=== PATIENT | female | born 1935 | race Caucasian/White ===

== ENCOUNTER → 2018-04-16 | Outpatient (CLI) | payer MEDICARE ==
--- NOTE | 2018-04-17 19:56 | Diagnostic Imaging Report ---
History: Right arm numbness Comparison studies: None Technique: Sagittal T1, T2 and IR, axial T2 and axial gradient echo Intravenous contrast: None Findings: Alignment: Normal lordosis. No scoliosis. Cervicomedullary junction: No abnormalities. Patent foramen magnum. Soft tissues: No T2 hyperintense inflammatory changes. Spinal cord: Focally increased in T2 signal dorsally from C3-C4 to inferior C4. Otherwise, normal in size and signal from the foramen magnum. Vertebrae: Normal in height and signal intensity. No fractures, infection or neoplasm. Degenerative changes: C2-C3: No abnormalities. C3-C4: Moderately degenerated disc. Severe spinal canal stenosis due to a disc osteophyte complex results in chronic T2 hyperintense gliotic/ischemic changes in the dorsal cord at midline that extend from C3-C4 to inferior C4 Moderate bilateral foraminal stenosis, left greater than right due to uncoarthrosis. Increased fluid is seen in the moderately degenerated left facet joint. No disc herniation. C4-C5: Moderately degenerated disc. Severe spinal canal stenosis is due to a disc osteophyte complex. Superimposed moderate bilateral foraminal stenosis due to uncoarthrosis. No disc herniation. C5-C6: Moderately degenerated disc. Moderate spinal canal stenosis due to a disc osteophyte complex. Moderate bilateral foraminal stenosis due to uncoarthrosis. No disc herniation. C6-C7: Moderately degenerated disc. Mild spinal canal stenosis due to a disc osteophyte complex. Foraminal stenosis, mild right, moderate left due to uncoarthrosis. No disc herniation. C7-T1: No abnormalities. Incidental 3 mm perineural cysts on the left. IMPRESSION: 1. Moderately degenerated discs from C3 to C7. 2. Severe degenerative spinal canal stenosis from C3 to C5 due to disc osteophyte complexes. T2 hyperintense aortic/chronic ischemic changes in the dorsal cord extend from C3-4 to inferior C4. 3. Superimposed degenerative foraminal stenosis is moderate from C3 to C7. 4. No disc herniations Signed by: Dr. Domingo Cavazos M.D. on 04/17/2018 7:53 PM
--- NOTE | 2018-04-18 08:26 | Diagnostic Imaging Report ---
History: R arm numbness . Comparison studies: None Technique: Sagittal and axial T2 , sagittal T1 and IR, axial spin density oblique. Intravenous contrast: None Findings: Alignment: Normal lordosis . Dextroscoliosis . Soft tissues: No T2 hyperintense inflammatory changes 1 cm cyst is seen at the right kidney upper pole. Paraspinal muscles: No signal abnormalities. Well-preserved. No atrophy . Lower thoracic cord: Normal in signal and morphology. The tip of the conus is at L1. Cauda equina: No masses. No arachnoiditis. Vertebrae: Normal in height and signal intensity. No compression fractures, infection or neoplasm. Degenerative changes: Disc degeneration with loss of T2 signal is partially visualized lower thoracic spine. L1-L2: Disc degeneration with loss T2 signal. Mild diffuse disc bulge and mild facet hypertrophy along with ligamentum flavum thickening results in mild canal stenosis and mild right foraminal narrowing. L2-L3: Disc degeneration with loss of T2 signal. Mild diffuse disc bulge, mild facet hypertrophy and ligamentum flavum thickening results in mild canal stenosis and mild bilateral foraminal narrowing. L3-L4: Disc degeneration with loss of T2 signal, decreased intervertebral space and L3 inferior endplates Schmorl node. Asymmetric left disc bulge, moderate facet hypertrophy and ligamentum flavum thickening results in moderate canal stenosis, obliteration of the left subarticular recesses and mild left foraminal narrowing. Trace of fluid is seen at the bilateral facet joints. L4-L5: Disc degeneration with loss of T2 signal, L4 inferior endplate Schmorl node and mild Modic type I changes towards the right. Asymmetric left disc bulge, moderate facet hypertrophy and ligamentum flavum thickening results in mild canal stenosis and no significant foraminal narrowing. Trace of fluid is seen at the right facet joint. L5-S1: Disc degeneration with loss of T2 signal mild diffuse disc bulge, moderate facet hypertrophy results in no significant canal stenosis or foraminal narrowing. Fluid is seen at the bilateral facet joints with inferiorly projecting 5 mm synovial cysts.. IMPRESSION: 1. Moderate canal stenosis and narrowing of the left subarticular recesses abutting the descending L4 nerve root at L3-L4. 2. Disc degeneration throughout the lumbar spine with mild Modic type I changes at L4-L5. 3. Moderate facet hypertrophy at the lower lumbar spine with synovitis changes. Other mild degenerative changes as described above . Signed by: Bry DelgadoD. on 04/18/2018 8:22 AM
== END ==
LOC: MRI 08:48
PROVIDERS: ATTEND Neurological Surgery
DX: M50.120 Mid-cervical disc disorder, unspecified level (principal); M48.062 Spinal stenosis, lumbar region with neurogenic claudication
CPT/HCPCS: 72141; 72148

== ENCOUNTER → 2018-04-20 | Outpatient (CLI) | payer MEDICARE ==
[~2018-04-20] MED LIST: ASPIR 8181 MG PO; CALCIUM600 MG PO; GADOBENATE DIMEGLUMINE 1 ML IV ONE; IRON PO; LOSARTAN POTASS50 MG PO; MAGNESIUM500 MG PO; MULTIVITAMINS1 EAC7 PO; SPIRONOLACTONE25 MG PO; VITAMIN D1000 UNI1 PO
== END ==
LOC: MRI 07:53
PROVIDERS: ATTEND Neurological Surgery
DX: M47.12 Other spondylosis with myelopathy, cervical region (principal)
CPT/HCPCS: 72142

== ENCOUNTER → 2018-04-25 | Outpatient (CLI) | payer MEDICARE ==
--- NOTE | 2018-04-25 16:18 | Diagnostic Imaging Report ---
History: Right hand numbness Comparison studies: None Technique: Pre-contrast: Sagittal T2; axial T1-IR, SWI, DWI, T2 FLAIR Post-contrast: Axial, coronal and sagittal T1. Intravenous contrast: 15 cc of MultiHance Findings: Scalp: No abnormal signal. No masses. Bone marrow: Normal in signal intensity. Extra-axial: No masses, fluid collections or hemorrhage. Brain sulci: Appropriate for age. Ventricles: Normal in size . No hydrocephalus. Parenchyma: Scattered T2 FLAIR hyperintense foci in the supratentorial white matter and in the lexi are nonspecific small vessel ischemic changes. No masses, hemorrhage, acute or chronic vascular insults. No enhancing abnormalities. Suprasellar region: No abnormalities. Craniocervical junction: No abnormalities. Patent foramen magnum. No Chiari one malformation.. Vessels: Normal flow-voids in the arteries and sinuses. IMPRESSION: 1. Mild microvascular ischemic changes in the supratentorial white matter and in the lexi. 2. Otherwise, no abnormalities. Signed by: Dr. Domingo Cavazos M.D. on 04/25/2018 4:15 PM
== END | disposition home or self-care (01) ==
LOC: MRI 13:29
PROVIDERS: ATTEND Neurological Surgery
DX: G95.89 Other specified diseases of spinal cord (principal)
CPT/HCPCS: 70553

== ENCOUNTER → 2018-07-07 | Outpatient (CLI) | payer MEDICARE ==
[~2018-07-07] MED LIST changes: -GADOBENATE DIMEGLUMINE 1 ML IV ONE
[2018-07-07 13:49] LABS: INR 1.13; PROTHROMBIN TIME 13.6 seconds (11.9-14.5)
[2018-07-07 13:50] LABS: PARTIAL THROMBOPLASTIN TIME 25.3 seconds (23.8-35.5)
== END ==
LOC: DX 12:52
PROVIDERS: ATTEND Student in an Organized Health Care Education/Training Program
DX: R93.7 Abnormal findings on diagnostic imaging of other parts of musculoskeletal system (principal)
CPT/HCPCS: 36415; 85049; 85610; 85730

== ENCOUNTER → 2018-07-25 | Outpatient (CLI) | payer MEDICARE ==
[~2018-07-25] MED LIST changes: +LIDOCAINE HCL 1% LOCAL INJ 20 ML VIAL ONE
--- NOTE | 2018-07-25 14:03 | Diagnostic Imaging Report ---
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 Medications: 1% lidocaine and bicarbonate. Exposure/ DAP: Total exam dose length product: 803 mGy-cm Procedure: Informed consent was obtained from the patient following delineation of the risks, benefits, and alternatives to the procedure. Patient was then taken to the CT suite and placed prone on the table. Preliminary imaging of the lumbosacral spine was performed. The patient's back was marked, prepped and draped in the usual sterile fashion. After administration of local anesthesia, a 22-gauge x 3.5 inch spinal needle was advanced via a right of midline approach into the L4-L5 subarachnoid utilizing CT guidance. Given difficulty with patient mobility, she was not repositioned into the lateral decubitus position. The pressure measurement utilizing prone positioning was 15 mm Hg. Approximately 11 cc of clear, colorless cerebrospinal fluid was removed and sent for analysis. The needle was removed and sterile bandage was applied. The patient tolerated the procedure well. Impression: CT guided L4-L5 lumbar puncture with successful removal of cerebrospinal fluid as above. Pressure measurement of 15 mm Hg on prone positioning. Signed by: Dr. Piedad Paris MD on 07/25/2018 1:59 PM
[2018-07-25 16:39] LABS: APPEARANCE,CSF CLEAR (CLEAR); COLOR,CSF COLORLESS (COLORLESS); TUBE NUMBER 3
[2018-07-25 16:40] LABS: WHITE BLOOD CELL,CSF 0 cells/uL (0-5)
[2018-07-25 19:35] LABS: TOTAL PROTEIN,CSF 42.3 mg/dL (15-40)
== END ==
LOC: DX 10:02
PROVIDERS: ATTEND Student in an Organized Health Care Education/Training Program
DX: R93.7 Abnormal findings on diagnostic imaging of other parts of musculoskeletal system (principal)
CPT/HCPCS: 36415; 62270; 77012; 82040; 82042; 82784; 82945; 83873; 83916; 84157; 86592; 87070; 87205; 87529; 87798 ×2; 89051; J2001; 88112; 88305

== ENCOUNTER → 2019-03-02 | Outpatient (CLI) | payer MEDICARE ==
[~2019-03-02] MED LIST changes: +GADOBENATE DIMEGLUMINE 1 ML IV ONE; -LIDOCAINE HCL 1% LOCAL INJ 20 ML VIAL ONE
[2019-03-02 08:26] LABS: BLOOD UREA NITROGEN 17 mg/dL (7-26); BUN/CREATININE RATIO 20 (6-25); CREATININE, SERUM 0.87 mg/dL (0.57-1.11); EST GLOMERULAR FILTRATION RATE > 60 ML/MIN (60-)
--- NOTE | 2019-03-03 10:58 | Diagnostic Imaging Report ---
Exam: Cervical spine MRI without IV contrast History: Numbness in hands and legs, predominant in the right Comparison studies: Cervical spine MRIs of 09/26/2018 and 04/20/2018 Technique: Sagittal T1, T2 and IR, axial T2 and axial gradient echo Intravenous contrast: None Findings: Alignment: Normal lordosis. Cervicomedullary junction: No abnormalities. Patent foramen magnum. Soft tissues: No T2 hyperintense inflammatory changes. Spinal cord: Focal increased T2 signal changes in the dorsal cord from C2-C3 through C4-C5. Associated focal enhancement in the dorsal cord at C4 cannot be likely evaluated due magnetic susceptibility artifact from fusion hardware. No abnormal enhancement at the remaining cervical levels. Vertebrae: No fractures, infection or neoplasm. Surgical changes: Anterior cervical discectomy and fusion from C3 to C5. Cannot further evaluate hardware integrity by MRI, due to magnetic susceptibility artifact. Degenerative changes: C2-C3: Mildly degenerated disc. Unchanged small disc bulge without significant canal stenosis. Pain foramina. C3-C4: Surgical level. And ligamentum flavum result in at least mild canal stenosis. Uncovertebral facet arthrosis result in moderate bilateral foraminal stenosis. Previous left facet effusion has resolved. C4-C5: Surgical fusion level. Moderate canal narrowing due to ligamentum flavum flavum thickening. Severe bilateral foraminal stenosis due to uncovertebral arthrosis C5-C6: Surgical level. Residual osteophyte complex and thickened ligamentum flavum with moderate canal stenosis and severe bilateral foraminal stenosis. C6-C7: Mildly degenerated disc. Disc ossify complex, thickened ligamentum flavum and uncovertebral arthrosis with mild canal stenosis and moderate foraminal stenosis (left greater than right C7-T1: Minimal anterolisthesis of C7 on T1 with associated uncovered disc/disc bulge. Bilateral facet arthrosis. Patent canal and foramina. IMPRESSION: 1. Surgical changes of C3-C6 ACDF. 2. Unchanged nonspecific signal abnormality in the dorsal cord from C2-C3 through C4-C5. Artifact from fusion hardware precludes the ability to evaluate for previously seen associated enhancement in the dorsal cord at C4. Nonspecific differential includes inflammatory or less likely neoplastic lesion. Small vascular lesion with surrounding gliosis is also a consideration. Continued follow-up is recommended. 3. Moderate canal stenosis from C3-C4 through C6-C7. Moreover, evaluation of the canal is somewhat limited due to artifact from fusion hardware. 4. Persistent varying degrees of moderate to severe degenerative foraminal stenosis from C3 to C7. Signed by: Dr. Tre Long M.D. on 03/03/2019 10:54 AM
== END ==
LOC: MRI 07:40
PROVIDERS: ATTEND Student in an Organized Health Care Education/Training Program
DX: R93.7 Abnormal findings on diagnostic imaging of other parts of musculoskeletal system (principal)
CPT/HCPCS: 36415; 72156; 82565; 84520